=== PATIENT | female | born 1965 | race African-American/Black ===

== ENCOUNTER 2019-11-30 11:04 | Observation (INO) | payer BC, OTHER ==
[2019-11-30] MEDS ORDERED: Ketorolac Tromethamine 30 MG/ML VIAL ONE (11:40)
[2019-11-30] MEDS ORDERED: Ondansetron PF 4 MG/2 ML Vial ONE ×2 (11:40→14:06)
[2019-11-30] MEDS ORDERED: Rocuronium Bromide 10 MG/ML (10ML VIAL) ONE (11:40)
[2019-11-30] MEDS ORDERED: PROPOFOL 200 MG/20 ML VIAL ONE (11:40)
[2019-11-30] MEDS ORDERED: Lidocaine 1% PF 5 ML VIAL ONE (11:40)
[2019-11-30] MEDS ORDERED: Dexamethasone 20 MG/5 ML VIAL ONE (11:40)
[2019-11-30] MEDS ORDERED: Glycopyrrolate 0.2 MG/ML 5 ML SYRINGE ONE (11:40)
[2019-11-30] MEDS ORDERED: Succinylcholine Chloride 20 MG/ML 10 ml SYRINGE FS ONE (11:40)
[2019-11-30 12:45] LABS: Bacteria/HPF 4+ HPF (None Seen); Bilirubin Negative (Negative); Blood, Urine 2+ (Negative); Clarity Turbid (Clear); Glucose, Urine (Dipstick) Normal (Negative); Leukocyte 75 Leu/uL (Negative); Mucous/LPF Rare LPF (<2+); Nitrite 2+ (Negative); Protein, Urine (Dipstick) 50 mg/dL (Neg-Trace); Squamous Epithelial 0-3 HPF (0-3); Urobilinogen Normal mg/dL (Less than 2); WBC/HPF 21-50 HPF (0-3)
[2019-11-30] MEDS ORDERED: Iopamidol-370 76% 500 ML 1 ML ONE (12:52)
[2019-11-30 13:19] LABS: #Lymphocytes 0.8 thou/uL (1.20-3.40); #Monocytes 0.9 thou/uL (0.11-0.59); %Basophils 0.1 % (0.0-1.0); %Eosinophils 0.3 % (0.0-10.0); %Lymphocytes 5.9 % (21.0-51.0); %Monocytes 6.4 % (0.0-10.0); %Neutrophils 87.3 % (42.0-75.0); Hemoglobin 13.7 g/dL (12.0-16.0); Mean Corpuscular HGB CONC 33.9 g/dL (32.0-36.0); Mean Corpuscular Hemoglobin 25.1 pg (27.0-31.0); Mean Corpuscular Volume 74.2 fL (78.0-98.0); Mean Platelet Volume 8.5 fL (7.4-10.4); Platelet Count 295 thou/uL (130-400); Red Blood Cell (RBC) Count 5.46 mill/uL (4.20-5.40); White Blood Cell (WBC) Count 13.7 thou/uL (4.8-10.8)
[2019-11-30 13:40] LABS: ALT (SGPT) 10 U/L (8-55); AST (SGOT) 15 U/L (5-34); Albumin 3.9 g/dL (3.5-5.0); Alkaline Phosphatase 104 U/L (40-110); Anion Gap 13 mmol/L (10-20); BUN (Urea Nitrogen) 13 mg/dL (9.8-20.1); Bilirubin, Total 1.1 mg/dL (0.2-1.2); Calc. Creatinine Clearance 0 mL/min (70-130); Calcium 9.1 mg/dL (7.8-10.44); Carbon Dioxide 26 mmol/L (22-29); Chloride 102 mmol/L (98-107); Estimated GFR-MDRD 61; Globulin 3.9 g/dL (2.4-3.5); Glucose 163 mg/dL (70-105); Lipase 7 U/L (8-78); Potassium 3.5 mmol/L (3.5-5.1); Protein, Total 7.8 g/dL (6.0-8.3); Sodium 137 mmol/L (136-145)
[2019-11-30 13:47] LABS: Hypochromia SLIGHT = 6-15 cells (100X) (0-5/hpf); MDiff Complete? YES; Microcytosis SLIGHT = 6-15 cells (100X) (0-5/hpf); Platelet Morphology Comment Appears Adequate; Target Cells SLIGHT = 2-5 cells (100X) (0-1/hpf)
[2019-11-30] MEDS ORDERED: Morphine 4 MG/ML VIAL ONE (14:06)
--- NOTE | 2019-11-30 15:02 | CT ---
CT ABDOMEN AND PELVIS WITH CONTRAST: Date: 11/30/2019 HISTORY: Abdominal pain. COMPARISON: None. FINDINGS: The lung bases are relatively clear. No pericardial effusion. The liver and spleen are unremarkable, along with the pancreas and adrenal glands. Multiple foci of cortical scarring of the right kidney. Mild fullness of the right renal pelvis and r ight ureter without an obstructing calculus. There is an appendicolith at the appendiceal base with a contained rupture near the appendiceal tip. The appendix is dilated, measuring over 1.0 cm in size, with a very small fluid collection between th e distal ileum and the appendiceal tip. The appendix extends from the cecal apex caudally and mediall y with tip just anterior to the right psoas muscle. Small volume free fluid in the pelvis. Aortic contour is nonaneurysmal. No acute osseous abnormality. There is some relatively high grade facet degenerative changes on the r ight at L4-5 with erosions. IMPRESSION: Complicated acute appendicitis with a 7.0 mm appendicolith at the appendiceal base, rupture of the ap pendiceal tip, with a small fluid collection between the distal ileum and the appendiceal tip measuri ng up to 2.0 cm in size. Surgical consultation advised. There are secondary reactive inflammatory darcy nges of the distal ileum due to the contained perforation. POS: [facility]
[2019-11-30] MEDS ORDERED: Piperacillin/Tazobactam 4.5 GM VIAL ONE (15:19)
--- NOTE | 2019-11-30 16:20 | HP ---
HISTORY: Ms. Keita is a 54-year-old woman, who presented to Emergency Department today complaining of 4-day history of what started as periumbilical abdominal pain, which settled in the right lower quadrant extending to the right flank occasionally. Pain was 7/10 at onset and intensifies to 10/10 the next day. The pain got better a day later but never went away. The patient decided to go to the emergency department this morning with persistent right lower quadrant abdominal pain, which she now rates at 8/10 associated with nausea, but no emesis. She denies any diarrhea, fevers, or chills. PAST MEDICAL HISTORY: Pertinent for essential hypertension. PAST SURGICAL HISTORY: Pertinent for bilateral tubal ligation. SOCIAL HISTORY: She is . 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 She denies any cigarette smoking, ethanol, or illicit drug abuse. FAMILY HISTORY: Notable for heart disease in her father, who at age 56 from complications of heart disease. Her mother has breast cancer, one sister had diabetes mellitus and another sister with some sort of cancer. She does not recall the specifics site. CURRENT MEDICATION: Lisinopril 10 mg p.o. daily. ALLERGIES: THE PATIENT DENIES ANY KNOWN DRUG ALLERGIES. REVIEW OF SYSTEMS: Ten-point review of systems essentially unremarkable except as stated in Past Medical History and Chief Complaint. PHYSICAL EXAMINATION: GENERAL: This reveals a 54-year-old normally-developed woman, who is currently interactive and appears stated age. The patient is alert and oriented x3, appears to be in no acute distress at the time of my evaluation. VITAL SIGNS: Include blood pressure 188/110, heart rate 79, respiratory rate is 18, temperature is 99 degrees Fahrenheit, and oxygen saturation 98% on room air. HEENT: Reveals normocephalic and atraumatic. Pupils are equal, round, and reactive to light and accommodation. Extraocular muscles are intact bilaterally. No scleral icterus present. HEART: Reveals regular rate and rhythm. No murmurs or gallops auscultated. LUNGS: Clear to auscultation bilaterally. Breathing, regular and unlabored. ABDOMEN: Soft and nondistended. She has right lower quadrant tenderness at McBurney's. She has a positive Rovsing's sign. She has a healed infraumbilical midline incisional scar from previous bilateral tubal ligation. NEUROLOGIC: Reveals no focal deficits present. LABORATORY FINDINGS: Today include CBC with 13,700 white blood cells, hemoglobin and hematocrit of 13.7 and 40.5 respectively, and platelet count is 295,000. Metabolic profile; sodium 137, potassium is 3.5, chloride is 102, bicarb is 26, BUN 13, creatinine is 1.13, and glucose is 163. AST and ALT are 15 and 10 respectively. Serum lipase is normal at 7. I have personally reviewed the CT scan of the abdomen and pelvis, which is remarkable for dilated appendix with periappendiceal fat stranding and surrounding free fluid. No significant pneumoperitoneum is present. There is an appendicolith in the appendiceal lumen. IMPRESSION: Acute appendicitis with perforation and localized peritonitis. PLAN: Laparoscopic appendectomy. Above findings and plan has been discussed with the patient and her at bedside. I have informed the patient of the risks and benefits of the proposed surgery to include, but not limited to, bleeding, infection, injury to bowel or surrounding structures. The patient indicates understanding information provided. I answered their questions. The patient has granted consent for this admission and surgical intervention. Job ID: [id number]
[2019-11-30] MEDS ORDERED: Fentanyl 100 MCG/2 ML VIAL ONE ×3 (17:43→20:53)
[2019-11-30] MEDS ORDERED: Lidocaine 1% w/Epinephrine 1:100K 20 ML VIAL ONE (17:45)
[2019-11-30] MEDS ORDERED: Bupivacaine PF 0.5% 30 ML VIAL ONE (17:45)
[2019-11-30] MEDS ORDERED: HYDROmorphone 2 MG/ML VIAL SLOW IVP PRN (18:41)
[2019-11-30] MEDS ORDERED: Ondansetron HCl/PF 4 MG/2 ML Vial IVP PRN (18:41)
[2019-11-30] MEDS ORDERED: Promethazine HCl 25 MG/ML VIAL SLOW IVP PRN (18:41)
[2019-11-30] MEDS ORDERED: Meperidine HCl/PF 25 MG/ML VIAL SLOW IVP PRN (18:41)
[2019-11-30] MEDS ORDERED: Promethazine HCl 25 MG/ML VIAL IM PRN (19:48)
[2019-11-30] MEDS ORDERED: hydrALAZINE 20 MG/ML VIAL SLOW IVP PRN (19:48)
[2019-11-30] MEDS ORDERED: Dextrose 5% in Water 1,000 ML IV PRN (19:48)
[2019-11-30] MEDS ORDERED: Ondansetron PF 4 MG/2 ML Vial IVP PRN (19:48)
[2019-11-30] MEDS ORDERED: Dextrose 50% Abboject 50 ML SYRINGE SLOW IVP PRN (19:48)
[2019-11-30] MEDS ORDERED: traMADol HCl 50 MG TAB PO PRN ×2 (19:51)
[2019-11-30] MEDS ORDERED: Enoxaparin Sodium 40 MG/0.4 ML SYRINGE SC SCH (21:00)
[2019-11-30 23:00] VITALS: BMI 33.8
[2019-11-30] MEDS: Acetaminophen 500 MG TAB PO SCH (23:16)
[2019-11-30] MEDS: Piperacillin/Tazobactam 3.375 GM in Sodium Chloride 0.9% 100 ML IVPB SCH (23:16)
[2019-11-30] MEDS: Famotidine/PF 20 mg/2ml Vial SLOW IVP SCH (23:17)
[2019-11-30] MEDS: Ketorolac Tromethamine 30 MG/ML VIAL IVP SCH (23:17)
[2019-11-30] MEDS: Lactated Ringer's 1,000 ML IV SCH (23:17)
[2019-11-30] MEDS: Famotidine 20 MG TAB PO SCH (23:26)
--- NOTE | 2019-12-01 00:35 | OP ---
DATE OF PROCEDURE: 11/30/2019 PREOPERATIVE DIAGNOSIS: Acute appendicitis. POSTOPERATIVE DIAGNOSES: Acute appendicitis with perforation and periappendiceal abscess. PROCEDURES PERFORMED: 1. Laparoscopic appendectomy. 2. Drainage of periappendiceal abscess. ANESTHESIA: General endotracheal. ESTIMATED BLOOD LOSS: 10 mL. FLUIDS GIVEN: 1000 mL crystalloids. COUNTS: Sponge and instrument counts were verified as correct x2. COMPLICATIONS: None apparent at the time of operation. INDICATIONS FOR OPERATION: This is a 54-year-old woman who presented to the emergency department with 4-day history of what started as a periumbilical abdominal pain, which settled in the right lower quadrant. Clinical radiographic examination was consistent with acute appendicitis with periappendiceal fluid collection suggestive of perforation. The patient was brought to the operating room for appendectomy. Findings are consistent with dilated thick-walled retrocecal appendix with perforation of the tip and walled-off periappendiceal abscess. DESCRIPTION OF PROCEDURE: Informed consent was obtained from the patient, who was brought to the operating room, placed in supine position. Following general anesthesia, a Aldrich catheter was inserted and placed to bedside drain. The abdomen was sterilely prepped and draped in usual fashion. The skin above the umbilicus was infiltrated with 0.25% Marcaine with epinephrine. A small curvilinear supraumbilical incision was made using 11 scalpel. Umbilical stalk was grasped with Kerry and elevated. Veress needle was inserted through the incision and placed in the peritoneal cavity, through which the abdomen was insufflated with 3 L of CO2 gas. Intraabdominal pressure noted at 2 mmHg. Following abdominal insufflation, Veress needle was removed, and a 5 mm trocar was introduced using a Visiport under laparoscopy. Laparoscopy confirmed proper placement of the port, no injuries to underlying structures. Additional laparoscopy revealed the right lower quadrant completely encased by omental adhesions. Under direct laparoscopy, two 5 mm suprapubic, and left lower quadrant ports were placed after the overlying skin were infiltrated with 0.25% Marcaine with epinephrine. Appropriate incision was made. The patient was placed in a Trendelenburg position, rotated to her left. I introduced Prestige grasper through the left lower quadrant port site, using this to bluntly take down omental adhesions to expose the distal ileum, which was completely plastered to the right lateral gutter. This was gently but bluntly teased off the anterior abdominal wall to reveal markedly dilated and thick-walled appendix with blown off the appendiceal tip. Large amount of purulent pus was egressed, which was evacuated with suction. I introduced a [place] dissector through the suprapubic port site grasping the appendix itself, which was elevated. The thickened mesoappendix was sterilely divided using LigaSure device down to the base. Appendix itself was divided at the appendicocecal junction between Endoloop. The specimen was passed off the abdominal cavity using the EndoCatch. Operative site was irrigated with saline. The appendiceal stump remained in place. No active bleeding noted. Finding, no other pathology, laparoscopy was terminated. Fascia of the left lower quadrant port site was closed using 0 Vicryl suture, and Endo Close device on the laparoscopy. The abdomen was desufflated. All ports and instruments removed and accounted for. Skin incision was closed using 4-0 Monocryl suture in subcuticular fashion. Dermabond was applied over incisional closure. The patient tolerated the operation without any apparent complication and was returned to recovery room in satisfactory condition. Job ID: [id number]
[2019-12-01] MEDS: hydrALAZINE 20 MG/ML VIAL SLOW IVP PRN ×2 (03:48→08:29)
[2019-12-01] MEDS: Lactated Ringer's 1,000 ML IV SCH (03:50)
[2019-12-01] MEDS: Acetaminophen 500 MG TAB PO SCH (04:45)
[2019-12-01] MEDS: Ketorolac Tromethamine 30 MG/ML VIAL IVP SCH (04:46)
[2019-12-01] MEDS: Piperacillin/Tazobactam 3.375 GM in Sodium Chloride 0.9% 100 ML IVPB SCH (04:46)
[2019-12-01 04:52] LABS: #Lymphocytes 0.9 thou/uL (1.20-3.40); #Monocytes 1.1 thou/uL (0.11-0.59); #Neutrophils 11.5 thou/uL (1.40-6.50); %Basophils 0.3 % (0.0-1.0); %Eosinophils 0.1 % (0.0-10.0); %Lymphocytes 6.3 % (21.0-51.0); %Neutrophils 85.3 % (42.0-75.0); Hemoglobin 12.5 g/dL (12.0-16.0); Mean Corpuscular HGB CONC 33.6 g/dL (32.0-36.0); Mean Corpuscular Hemoglobin 24.5 pg (27.0-31.0); Mean Platelet Volume 8.6 fL (7.4-10.4); Platelet Count 281 thou/uL (130-400); RBC Distribution Width 13.1 % (11.5-14.5); Red Blood Cell (RBC) Count 5.11 mill/uL (4.20-5.40); White Blood Cell (WBC) Count 13.5 thou/uL (4.8-10.8)
[2019-12-01 05:18] LABS: Anion Gap 12 mmol/L (10-20); BUN (Urea Nitrogen) 10 mg/dL (9.8-20.1); Calc. Creatinine Clearance 90 mL/min (70-130); Calcium 8.6 mg/dL (7.8-10.44); Carbon Dioxide 22 mmol/L (22-29); Chloride 106 mmol/L (98-107); Estimated GFR-MDRD 79; Glucose 126 mg/dL (70-105); Magnesium 1.9 mg/dL (1.6-2.6); Phosphorus 3.9 mg/dL (2.3-4.7); Potassium 3.7 mmol/L (3.5-5.1); Sodium 136 mmol/L (136-145)
--- NOTE | 2019-12-01 06:17 | PRG ---
DATE OF SERVICE: 12/01/2019 SUBJECTIVE: Ms. Keita is a 54-year-old female, admission to the hospital with a chief complaint of abdominal pain. The patient sustained acute appendicitis. The patient underwent laparoscopic appendectomy and drainage of periappendiceal abscess yesterday. Postop, the patient has been doing well. Pain is controlled. The patient is able to walk around the room. Her urine is adequate. She developed no fever or shortness of breath. Blood pressure is in the high end 140 to 170 systolic. The patient tolerated with her diet. OBJECTIVE: GENERAL: Currently, the patient is lying in bed comfortable with no acute respiratory distress. VITAL SIGNS: Temperature 98.3, heart rate 64, respiratory rate 16, O2 saturation 97% on room air, blood pressure 176/86. LUNGS: Clear bilaterally. HEART: Regular rate and rhythm. ABDOMEN: Soft, nondistended. EXTREMITIES: Neurovascularly intact x4. NEUROLOGIC: No focal neurological deficits. ASSESSMENT: 1. Appendicitis, status post laparoscopic appendectomy and drainage of periappendiceal abscess. 2. History of hypertension. PLAN: We will continue supportive care. Continue pain control. The patient will have lisinopril 20 mg p.o. in the morning for blood pressure. Anticipate discharge home today. Job ID: [id number]
[2019-12-01] MEDS: Famotidine/PF 20 mg/2ml Vial SLOW IVP SCH (08:31)
[2019-12-01] MEDS: Famotidine 20 MG TAB PO SCH (08:31)
[2019-12-01] MEDS ORDERED: Lisinopril 20 MG TAB PO SCH ×2 (09:00→21:00)
[2019-12-01] MEDS ORDERED: Ibuprofen 600 MG TAB PO PRN (10:23)
[2019-12-01 11:47] VITALS: BP 132/76; TEMP 97.9
[2019-12-01] MEDS ORDERED: Amoxicillin/Potassium Clav 875 MG TAB PO SCH (21:00)
--- NOTE | 2019-12-02 03:31 | DIS ---
DATE OF ADMISSION: 11/30/2019 DATE OF DISCHARGE: 12/01/2019 ADMITTING AND DISCHARGE PHYSICIAN: Jose M Concepcion DO. ADMITTING DIAGNOSES: Acute appendicitis with periappendiceal abscess. DISCHARGE DIAGNOSES: Acute appendicitis with periappendiceal abscess. OPERATION AND PROCEDURES: Laparoscopic appendectomy with drainage of periappendiceal abscess on 11/30/[address] Concepcion. Please see a separate dictation for operative report. HISTORY/HOSPITAL COURSE: A 54-year-old woman was admitted yesterday, with acute appendicitis with periappendiceal abscess, which required laparoscopic appendectomy and drainage of periappendiceal abscess. Following the surgery, the patient was admitted to surgical floor, where she remained at the time of discharge. She has remained hemodynamically stable and afebrile throughout her hospitalization. On postop day #1, she is ambulating with minimum difficulty. Her pain is adequately controlled with oral analgesics. She is tolerating diet. She is passing flatus, having normal urinary function. Abdominal examination reveals intact and clean incisional wounds with no peritoneal signs on examination. VITAL SIGNS: Today include a CBC with 13,500 white blood cells, hemoglobin and hematocrit remained stable at 12.5 and 37.3 respectively. Platelet count 281,000. Metabolic profile; sodium 136, potassium 3.7, chloride is 106, bicarb is 22, BUN 10, creatinine 0.90, glucose 126, magnesium is 1.9, and phosphorus 3.9. DISCHARGE INSTRUCTIONS: Patient is deemed hemodynamically stable for discharge. She is to follow up with me in the clinic on 12/15/2019 at 1400 hours. She may resume her pre-hospital medication, including lisinopril 10 mg p.o. daily. She may take Tylenol 1000 mg p.o. q.6 hours alternating this with ibuprofen 600 mg p.o. q.8 hours p.r.n. pain. Additionally, she is given a prescription for tramadol 50 mg, #30, to be taken 1 to 2 p.o. q.6 hours p.r.n. breakthrough pain. She is also given a prescription for Augmentin 875 mg, #10, to be taken one p.o. b.i.d. for five days. Patient is to call me with any questions or problems, including exacerbation of abdominal pain, fever in excess of 101 degrees Fahrenheit, drainage from the incisional wounds, or intolerance to oral intake. She may shower effective 12/02/2019. She is to avoid weight lifting in excess of 20 pounds for two weeks. She is also discouraged from soaking herself in a bathtub or swimming for two weeks. Patient indicates understanding of the information provided. I have answered her questions. Patient has expressed gratitude for the care rendered to her during this hospitalization and surgery. Job ID: [id number]
== END 2019-12-01 12:02 | disposition home or self-care (01) ==
LOC: ERS 11:04 → SDC/OP 20:42 → ONC 21:48
PROVIDERS: ADMIT Surgery; ATTEND Surgery
PROC: 0DTJ4ZZ Resection of Appendix, Percutaneous Endoscopic Approach (ICD-10-PCS; principal; 2019-12-01)
DX: K35.33 Acute appendicitis with perforation, localized peritonitis, and gangrene, with abscess (principal); I10 Essential (primary) hypertension; Z79.899 Other long term (current) drug therapy
CPT/HCPCS: 36415; 74177; 80048; 80053; 81003; 81015; 83690; 83735; 84100; 85025; 87077; 87086; 87186; 88304; 96365; 96372; 96375; 96376; G0378; J0360; J1100; J1650; J1885; J2001; J2270; J2405; J2543; J2704; J3010; J3490; Q9967; S0020; S0028

== ENCOUNTER 2022-03-20 08:37 | Emergency (ER) | payer BC, SELFPAY ==
[2022-03-20] MEDS ORDERED: Ibuprofen 200 MG TAB ONE (10:02)
[2022-03-20] MEDS ORDERED: Acetaminophen 500 MG TAB ONE (10:02)
[2022-03-20] MEDS ORDERED: Benzocaine 20% Spray 60 ML CAN ONE (10:02)
== END 2022-03-20 10:47 | disposition home or self-care (01) ==
LOC: ERS 08:37
DX: J02.0 Streptococcal pharyngitis (principal); I10 Essential (primary) hypertension
CPT/HCPCS: 87430; 99283

== ENCOUNTER 2022-05-02 14:48 | Emergency (ER) | payer BC, SELFPAY ==
[2022-05-02 15:25] LABS: #Eosinphils 0.2 thou/uL (0.0-0.7); #Lymphocytes 0.7 thou/uL (1.20-3.40); #Monocytes 1.1 thou/uL (0.11-0.59); #Neutrophils 9.1 thou/uL (1.40-6.50); %Basophils 0.2 % (0.0-1.0); %Eosinophils 1.4 % (0.0-10.0); %Lymphocytes 6.7 % (21.0-51.0); %Monocytes 9.8 % (0.0-10.0); Hemoglobin 14.2 g/dL (12.0-16.0); Mean Corpuscular HGB CONC 33.9 g/dL (32.0-36.0); Mean Corpuscular Hemoglobin 25.7 pg (27.0-31.0); Mean Corpuscular Volume 75.8 fl (78.0-98.0); Mean Platelet Volume 8.7 fL (7.4-10.4); Platelet Count 242 10x3/uL (130-400); RBC Distribution Width 13.5 % (11.5-14.5); Red Blood Cell (RBC) Count 5.54 mill/uL (4.20-5.40); White Blood Cell (WBC) Count 11.1 10x3/uL (4.8-10.8)
[2022-05-02 15:43] LABS: ALT (SGPT) 13 U/L (8-55); AST (SGOT) 17 U/L (5-34); Albumin 4.2 g/dL (3.5-5.0); Alkaline Phosphatase 115 U/L (40-110); Anion Gap 7 mmol/L (10-20); BUN (Urea Nitrogen) 10 mg/dL (9.8-20.1); Bilirubin, Total 1.1 mg/dL (0.2-1.2); Calc. Creatinine Clearance 0 mL/min (70-130); Calcium 9.2 mg/dL (7.8-10.44); Carbon Dioxide 28 mmol/L (22-29); Chloride 104 mmol/L (98-107); Estimated GFR 69; Globulin 3.6 g/dL (2.4-3.5); Glucose 105 mg/dL (70-105); Potassium 3.1 mmol/L (3.5-5.1); Protein, Total 7.8 g/dL (6.0-8.3); Sodium 136 mmol/L (136-145)
[2022-05-02] MEDS ORDERED: Aspirin Chewable 81 MG TAB ONE (17:19)
[2022-05-02] MEDS ORDERED: hydrALAZINE 20 MG/ML VIAL ONE (17:19)
[2022-05-02] MEDS ORDERED: Labetalol HCl 100 MG/20 ML VIAL ONE (18:18)
[2022-05-02] MEDS ORDERED: Ondansetron PF 4 MG/2 ML Vial ONE (18:37)
== END 2022-05-02 20:47 | disposition home or self-care (01) ==
LOC: ERS 14:48
DX: I10 Essential (primary) hypertension (principal)
CPT/HCPCS: 36415; 71046; 80053; 83690; 84484; 85025; 87804; 93005; 96374; 96375; 96376; J0360; J2405

== ENCOUNTER 2022-07-19 14:30 | Outpatient (CLI) | payer BC | END 2022-07-19 14:31 | disposition home or self-care (01) | LOC: BICMAMMO 14:30 | PROVIDERS: ATTEND Nurse Practitioner Family | DX: Z12.31 Encounter for screening mammogram for malignant neoplasm of breast (principal); Z80.3 Family history of malignant neoplasm of breast | CPT/HCPCS: 77063; 77067 ==

== ENCOUNTER 2023-06-29 19:44 | Emergency (ER) | payer BC, OTHER ==
[2023-06-29 20:45] LABS: SARS-CoV-2 NAA Rapid Test Not Detected (NotDetected)
== END 2023-06-29 21:52 | disposition home or self-care (01) ==
LOC: ERS 19:44
DX: J06.9 Acute upper respiratory infection, unspecified (principal); I10 Essential (primary) hypertension
CPT/HCPCS: 87081; 87430; 99284

== ENCOUNTER 2023-10-26 08:25 | Emergency (ER) | payer BC ==
[2023-10-26] MEDS ORDERED: Dexamethasone 10 MG/ML VIAL ONE (09:56)
== END 2023-10-26 10:05 | disposition home or self-care (01) ==
LOC: ERS 08:25
DX: J02.9 Acute pharyngitis, unspecified (principal); I10 Essential (primary) hypertension; Z79.899 Other long term (current) drug therapy
CPT/HCPCS: 87081; 87430; 99283; J1100

== ENCOUNTER 2023-12-23 11:02 | Emergency (ER) | payer BC ==
[2023-12-23 12:44] LABS: ALT (SGPT) 18 U/L (8-55); AST (SGOT) 22 U/L (5-34); Albumin 3.8 g/dL (3.5-5.0); Alkaline Phosphatase 81 U/L (40-110); Anion Gap 11 mmol/L (10-20); BUN (Urea Nitrogen) 17 mg/dL (9.8-20.1); Calc. Creatinine Clearance 0 mL/min (70-130); Calcium 9.3 mg/dL (7.8-10.44); Carbon Dioxide 27 mmol/L (22-29); Chloride 105 mmol/L (98-107); Estimated GFR 52; Globulin 3.1 g/dL (2.4-3.5); Glucose 89 mg/dL (70-105); Potassium 3.3 mmol/L (3.5-5.1); Protein, Total 6.9 g/dL (6.0-8.3); RBC Distribution Width 14.3 % (11.5-14.5); Sodium 140 mmol/L (136-145)
[2023-12-23 12:45] LABS: #Basophils 0.04 10x3/uL (0.0-0.2); %Basophils 0.5 % (0.0-1.0); %Eosinophils 1.9 % (0.0-10.0); %Lymphocytes 30.5 % (21.0-51.0); %Monocytes 8.4 % (0.0-10.0); %Neutrophils 58.4 % (42.0-75.0); Hemoglobin 13.1 g/dL (12.0-16.0); Mean Corpuscular HGB CONC 35.4 g/dL (32.0-36.0); Mean Corpuscular Hemoglobin 26.3 pg (27.0-31.0); Mean Corpuscular Volume 74.3 fL (78.0-98.0); Platelet Count 258 10x3/uL (130-400); Red Blood Cell (RBC) Count 4.98 mill/uL (4.20-5.40)
[2023-12-23 12:49] LABS: Troponin I Less than 0.010 ng/mL (< 0.028)
[2023-12-23 13:17] LABS: Microcytosis SLIGHT = 6-15 cells HPF (0-5); Platelet Adequacy Comment Platelets Normal; Polychromasia SLIGHT = 2-3 cells HPF (0-2)
[2023-12-23] MEDS ORDERED: Potassium Chloride 20 MEQ TAB ONE (13:19)
[2023-12-23 14:05] LABS: Troponin I Less than 0.010 ng/mL (< 0.028)
== END 2023-12-23 14:34 | disposition home or self-care (01) ==
LOC: ERS 11:02
DX: R07.9 Chest pain, unspecified (principal); I10 Essential (primary) hypertension
CPT/HCPCS: 36415; 71045; 80053; 83880; 84484; 85025; 93005